=== PATIENT | male | born 1980 | race Caucasian/White ===

== ENCOUNTER 2018-05-18 13:01 | Outpatient (CLI) | payer BC ==
--- NOTE | 2018-05-18 15:59 | RAD ---
SIX VIEWS CERVICAL SPINE: INDICATION: History of herniated disk at C5-C6 and C6-7. COMPARISON: Prior MRI of cervical spine dated 03/11/18. FINDINGS: Lateral masses are symmetric. Vertebral alignment appears within normal limits. Prevertebral soft t issues are normal appearing. No acute fracture or subluxation is evident. No definite abnormal dimas slational motion is demonstrated. IMPRESSION: No acute osseous abnormality. POS: [facility]
== END 2018-05-18 13:02 | disposition home or self-care (01) ==
LOC: TBSIIMAG 13:01
PROVIDERS: ATTEND Surgery
DX: M54.12 Radiculopathy, cervical region (principal); M48.02 Spinal stenosis, cervical region
CPT/HCPCS: 72050

== ENCOUNTER 2018-07-21 10:17 | Outpatient (CLI) | payer BC ==
[2018-07-21 12:29] LABS: Hemoglobin 15.4 g/dL (14.0-18.0); Mean Corpuscular HGB CONC 33.2 g/dL (32.0-36.0); Mean Corpuscular Hemoglobin 26.9 pg (27.0-31.0); Mean Corpuscular Volume 80.9 fL (78.0-98.0); Mean Platelet Volume 7.9 fL (7.4-10.4); Platelet Count 258 thou/uL (130-400); RBC Distribution Width 11.4 % (11.5-14.5); Red Blood Cell (RBC) Count 5.73 mill/uL (4.70-6.10); White Blood Cell (WBC) Count 7.5 thou/uL (4.8-10.8)
[2018-07-21 12:36] LABS: PTT 27.7 SEC (22.9-36.1); Prothrombin Time 13.1 SEC (12.0-14.7)
[2018-07-21 12:51] LABS: Anion Gap 11 mmol/L (10-20); BUN (Urea Nitrogen) 10 mg/dL (8.9-20.6); Calc. Creatinine Clearance 0 mL/min (70-130); Calcium 9.4 mg/dL (7.8-10.44); Carbon Dioxide 26 mmol/L (22-29); Chloride 105 mmol/L (98-107); Estimated GFR-MDRD 73; Glucose 96 mg/dL (70-105); Potassium 4.2 mmol/L (3.5-5.1); Sodium 138 mmol/L (136-145)
== END 2018-07-21 10:18 | disposition home or self-care (01) ==
LOC: LABBT 10:17
PROVIDERS: ATTEND Surgery
DX: Z01.818 Encounter for other preprocedural examination (principal); M48.02 Spinal stenosis, cervical region; M54.12 Radiculopathy, cervical region
CPT/HCPCS: 80048; 85027; 85610; 85730; 93005; 93010

== ENCOUNTER 2018-07-28 07:15 | Day surgery (SDC) | payer BC ==
[2018-07-21 10:47] VITALS: BMI 33.7
[2018-07-28] MEDS ORDERED: CEFAZOLIN 2 GM/50 ML BAG ONE (09:13)
[2018-07-28] MEDS ORDERED: Thrombin 5000 UNITS/5 ML VIAL ONE (11:16)
[2018-07-28] MEDS ORDERED: Sodium Chloride 0.9% 10 ML ONE (11:16)
[2018-07-28] MEDS ORDERED: Fentanyl 250 MCG/5 ML VIAL ONE (11:20)
[2018-07-28] MEDS ORDERED: PACU-Morphine 4MG/ML VIAL SLOW IVP PRN (13:41)
[2018-07-28] MEDS ORDERED: Promethazine HCl 25 MG/ML VIAL SLOW IVP PRN (13:41)
[2018-07-28] MEDS ORDERED: Ondansetron HCl/PF 4 MG/2 ML Vial IVP PRN (13:41)
[2018-07-28] MEDS ORDERED: Meperidine HCl/PF 25 MG/ML VIAL SLOW IVP PRN (13:41)
[2018-07-28] MEDS ORDERED: Morphine Sulfate 2 MG/ML SYRINGE SLOW IVP PRN (13:41)
[2018-07-28] MEDS ORDERED: Promethazine HCl 25 MG/ML VIAL IM PRN ×2 (13:41→13:43)
[2018-07-28] MEDS ORDERED: HYDROmorphone 2 MG/ML VIAL SLOW IVP PRN (13:41)
[2018-07-28] MEDS ORDERED: Fleet Enema 133 ML BOT PR PRN (13:43)
[2018-07-28] MEDS ORDERED: HYDROcodone/Acetaminophen 7.5/325 mg Tablet PO PRN (13:43)
[2018-07-28] MEDS ORDERED: traMADol HCl 50 MG TAB PO PRN (13:43)
[2018-07-28] MEDS ORDERED: Milk Of Magnesia 30 ML UDCUP PO PRN (13:43)
[2018-07-28] MEDS ORDERED: Mag-Al 1200 mg/1200 mg/30 ML UDCUP PO PRN (13:43)
[2018-07-28] MEDS ORDERED: Acetaminophen/Codeine 30-300mg Tablet PO PRN (13:43)
[2018-07-28] MEDS ORDERED: Acetaminophen 325 MG TAB PO PRN (13:43)
[2018-07-28] MEDS ORDERED: tiZANidine HCl 4 MG TAB PO PRN (13:43)
[2018-07-28] MEDS ORDERED: Bisacodyl 10 MG SUPP PR PRN (13:43)
[2018-07-28] MEDS ORDERED: Calcium Carbonate 500 MG ChewTAB PO PRN (13:46)
[2018-07-28] MEDS ORDERED: Fentanyl 100 MCG/2 ML VIAL ONE (14:00)
[2018-07-28] MEDS ORDERED: HYDROmorphone 2 MG/ML VIAL ONE (14:00)
[2018-07-28] MEDS ORDERED: Glycopyrrolate 0.2 MG/ML 5 ML SYRINGE ONE (16:19)
[2018-07-28] MEDS ORDERED: Lidocaine 1% PF 5 ML VIAL ONE (16:19)
[2018-07-28] MEDS ORDERED: Dexamethasone 20 MG/5 ML VIAL ONE (16:19)
[2018-07-28] MEDS ORDERED: PHENYLEPHRINE-NS 100 MCG/ML 10 ML SYRINGE ONE (16:19)
[2018-07-28] MEDS ORDERED: Ondansetron PF 4 MG/2 ML Vial ONE (16:19)
[2018-07-28] MEDS ORDERED: PROPOFOL 200 MG/20 ML VIAL ONE (16:19)
[2018-07-28] MEDS: Sodium Chloride 0.9% 1,000 ML IV SCH (17:20)
[2018-07-28] MEDS: CEFAZOLIN 2 GM/50 ML BAG IVPB SCH (17:20)
[2018-07-28] MEDS ORDERED: Gabapentin 300 MG CAP PO SCH (21:00)
[2018-07-28] MEDS ORDERED: Amlodipine 10 MG TAB PO SCH (21:00)
[2018-07-28] MEDS: Famotidine 20 MG TAB PO SCH (21:14)
[2018-07-29] MEDS: CEFAZOLIN 2 GM/50 ML BAG IVPB SCH ×2 (00:19→07:53)
[2018-07-29] MEDS: Sodium Chloride 0.9% 1,000 ML IV SCH (06:29)
[2018-07-29] MEDS: Famotidine 20 MG TAB PO SCH (07:53)
--- NOTE | 2018-07-29 08:42 | OP ---
DATE OF PROCEDURE: 07/28/2018 [employer]: Avery Prescott PA-C PREPROCEDURE DIAGNOSIS: Cervical stenosis with neck and right arm pain with bilateral stenosis. POSTPROCEDURE DIAGNOSIS: Cervical stenosis with neck and right arm pain with bilateral stenosis. PROCEDURES PERFORMED: 1. Anterior C5-C6 and C6-C7 diskectomies for decompression of spinal cord nerve roots. 2. Placement of interbody spacer packed with local bone autograft at time of same incision, allograft C5-C6 and C6-C7 for arthrodesis. 3. Anterior cervical plate and screw fixation C5, C6, and C7. 4. Use of operative microscope from microdissection. DESCRIPTION OF PROCEDURE: After informed consent was obtained from the patient, the patient was brought to OR. Proper patient pause and identification was carried out. He was placed in excellent general endotracheal anesthesia and positioned supine on the OR table. The right anterior oblique heladio to the lateral approach to the C5, C6, and C7 segments were identified. This region was sterilely cleansed, prepared, and draped. Proper patient pause and identification was carried out. The wound was then opened with a combination of sharp, monopolar, and blunt dissection and proceeded to expose lateral to the trachea and esophagus and medial to the right carotid sheath. The prevertebral layer of deep cervical fascia and the longus colli muscles were swept laterally, retractors were placed. Localization confirmed our area of interest and distraction of C5-C6 occurred. Microscope was brought onto the field for microdissection. Diskectomy was performed at C5-C6 with excellent decompression of the common neural tube and the C6 nerve roots bilaterally. I then turned our attention to placement of the interbody spacer, packed with graft for arthrodesis. This was performed at C5-C6. Distraction was released and distraction at C6-C7 then occurred. We then performed the diskectomy at C6-C7 with the use of the microscope from microdissection with excellent decompression of the common neural tube in the C7 nerve roots. We then placed an interbody spacer at appropriate dimension, packed with graft for arthrodesis and microscope was removed. Anterior cervical plate and screw fixation at C5, C6, and C7 then occurred with final tightening. We were satisfied with our decompression at that point and our construct. Copious irrigation occurred throughout as did maximize the hemostasis. The wound was then closed in anatomic layers over drain. The patient emerged from anesthesia. Job ID: [id number]
--- NOTE | 2018-07-29 10:52 | PRG ---
DATE OF SERVICE: 07/29/2018 SUBJECTIVE: Mr. Tse is postoperative day 1 from C5 through C7 ACDF. He is doing well with improvement in his right arm pain. His drain output has been essentially zero. We will plan to remove this and mobilize him. Neurologically, he is doing very well. We went over both intra and postoperative issues. He will be dismissed. Job ID: [id number]
[2018-07-29 12:08] VITALS: BP 129/83; TEMP 98.8
== END 2018-07-29 12:54 | disposition home or self-care (01) ==
LOC: SDC 07:15 → SURG B 13:40 → SDC 07-29 12:54
PROVIDERS: ATTEND Surgery
PROC: 0RT30ZZ Resection of Cervical Vertebral Disc, Open Approach (ICD-10-PCS; principal; 2018-07-28)
PROC: 0RG20A0 Fusion of 2 or more Cervical Vertebral Joints with Interbody Fusion Device, Anterior Approach, Anterior Column, Open Approach (ICD-10-PCS; principal; 2018-07-28)
DX: M48.02 Spinal stenosis, cervical region (principal); M54.12 Radiculopathy, cervical region; Z91.041 Radiographic dye allergy status; Z91.013 Allergy to seafood; Z79.899 Other long term (current) drug therapy
CPT/HCPCS: 76001; 96374; C1713; C1776; J1100; J1170; J2001; J2405; J2704; J3010; J3490

== ENCOUNTER 2018-09-09 10:20 | Outpatient (CLI) | payer BC ==
--- NOTE | 2018-09-09 11:04 | RAD ---
CERVICAL SPINE SERIES FOUR VIEWS: History: Post op. FINDINGS: Patient has undergone anterior cervical fusion. There has been placement of plate and screws from C5 to C7. Markers of the disc implant are in the confines of the disc level. IMPRESSION: Post-operative change of lower cervical spine. POS: [facility]
== END 2018-09-09 10:21 | disposition home or self-care (01) ==
LOC: TBSIIMAG 10:20
PROVIDERS: ATTEND Surgery
DX: M54.12 Radiculopathy, cervical region (principal); Z98.890 Other specified postprocedural states
CPT/HCPCS: 72040

== ENCOUNTER 2019-04-08 15:18 | Outpatient (CLI) | payer OTHER ==
--- NOTE | 2019-04-08 16:25 | RAD ---
CERVICAL SPINE RADIOGRAPHS THREE VIEWS: 04/08/19 PROVIDED CLINICAL HISTORY: Disability exam. FINDINGS: Comparison 09/09/18. Cervical alignment remains normal. Vertebral body heights and intervertebral disc space heights appea r preserved. Changes of ACDF at C5 through C7 redemonstrated, without evidence for hardware complicat ion. No prevertebral soft tissue swelling apparent. The visualized lung apices appear clear. IMPRESSION: Cervical spine postoperative change. POS: [facility]
== END 2019-04-08 15:19 | disposition home or self-care (01) ==
LOC: BICRAD 15:18
PROVIDERS: ATTEND Internal Medicine
DX: Z02.71 Encounter for disability determination (principal); Z98.1 Arthrodesis status
CPT/HCPCS: 72040